=== PATIENT | male | born 1975 | race Hispanic/Latino ===

== ENCOUNTER 2020-02-18 16:25 | Emergency (ER) | payer SELFPAY ==
[~2020-02-18] VITALS: Ht 182.9 cm; Wt 127.0 kg
[2020-02-18] MEDS ORDERED: CLONIDINE HCL 0.1 MG TAB ONE (16:59)
[2020-02-18] MEDS ORDERED: CLONIDINE HCL 0.2 MG TAB PO ONE (17:00)
[2020-02-18] MEDS ORDERED: INSULIN REGULAR, HUMAN 100 UNIT/1 ML 3ML VIAL ONE (17:37)
[2020-02-18 17:42] VITALS: BP 183/102
[2020-02-18] MEDS ORDERED: INSULIN REGULAR, HUMAN 100 UNIT/1 ML 3ML VIAL IV ONE (17:45)
== END 2020-02-18 17:44 | disposition home or self-care (01) ==
LOC: FSED 16:25
DX: R51 Headache (principal); E11.65 Type 2 diabetes mellitus with hyperglycemia; I10 Essential (primary) hypertension; I51.9 Heart disease, unspecified; G98.8 Other disorders of nervous system
CPT/HCPCS: 93005; 99283; J1817